=== PATIENT | female | born 1935 | race Caucasian/White ===

== ENCOUNTER 2017-03-12 17:16 | Emergency (ER) | payer MEDICARE, BC ==
--- NOTE | ~2017-03-12 | CT71 ---
[facility] A Service [facility] RADIOLOGY TEXT RESULTS PATIENT: DIANNA COLLIER LOCATION: [facility] : 35 UNIT #: [id number] AGE: [address]: Toyin Hancock MD SEX: F ORDER DR: [id number] [facility]. [place], [place] [address] [id number] E MR#: [id number] #: [id number] NAME: DIANNA COLLIER. : 1935 SEX: F STUDY DATE/TIME: 03/12/2017 17:12 UNIT: [facility] ROOM: STUDY DESCRIPTION: CT Head Wo Contrast Attending Physician: Toyin Hancock M.D. Referring Physician: Cristofer De Anda Jr., M.D. Ordering Physician: Toyin Hancock M.D. Primary Care Physician: Cristofer De Anda Jr., M.D. MEDICAL IMAGING REPORT This report is preliminary unless electronic signature is present EXAM Noncontrast head CT HISTORY 81-year-old female fell at [facility] today, hit head, left frontal soft tissue swelling. COMPARISON Head CT 12/01/[address] exam was performed with one or more of the following radiation dose reduction techniques: Automatic exposure control, adjustment of mA and/or kV according to patient size, and iterative reconstruction. Axial noncontrast imaging of the brain demonstrates generalized cerebral atrophy. Decreased attenuation of the periventricular white matter most compatible with chronic microvascular disease. No large vessel infarcts. No mass or hemorrhage. No intracranial mass lesion seen. Large left frontal scalp hematoma measuring up to 6 cm at its base. No evidence of fracture. Bilateral maxillary, ethmoid and sphenoid sinus and frontal sinus disease most likely represents chronic sinusitis. IMPRESSION 1. No acute intracranial abnormality identified. 2. Generalized atrophy with evidence of chronic microvascular disease. 3. Large left frontal scalp hematoma. 4. Chronic pansinusitis. [facility] A Service [facility] RADIOLOGY TEXT RESULTS PATIENT: DIANNA COLLIER LOCATION: [facility] : 35 UNIT #: [id number] AGE: [address]: Toyin Hancock MD SEX: F ORDER DR: Dictated by... Tram Moeller M.D. THIS IS AN ELECTRONICALLY VERIFIED REPORT Tram Moeller M.D. at 03/13/2017 3:33 PM LYNNE/tyrone TD: 03/13/2017 02:44 JOB #: [id number] MEDICAL IMAGING REPORT Page 1 of 1 COPY
--- NOTE | ~2017-03-12 | CT52 ---
[facility] A Service [facility] RADIOLOGY TEXT RESULTS PATIENT: DIANNA COLLIER LOCATION: [facility] : 35 UNIT #: [id number] AGE: [address]: Toyin Hancock MD SEX: F ORDER DR: [id number] [facility]. [place], [place] [address] [id number] E MR#: [id number] Acc #: [id number] NAME: DIANNA COLLIER. : 1935 SEX: F STUDY DATE/TIME: 03/12/2017 17:19 UNIT: [facility] ROOM: STUDY DESCRIPTION: CT Cervical Spine Wo Cont Attending Physician: Toyin Hancock M.D. Referring Physician: Cristofer De Anda Jr., M.D. Ordering Physician: Toyin Hancock M.D. Primary Care Physician: Cristofer De Anda Jr., M.D. MEDICAL IMAGING REPORT This report is preliminary unless electronic signature is present EXAM CT cervical spine without contrast HISTORY 81-year-old female fell at [facility] today, complains of neck pain, diffuse pain and swelling. COMPARISON CT cervical spine 12/01/[address] exam was performed with one or more of the following radiation dose reduction techniques: Automatic exposure control, adjustment of mA and/or kV according to patient size, and iterative reconstruction. Thin-section axial images performed through the cervical spine without contrast. Multiplanar reconstructed images reviewed at a workstation. Examination demonstrates an exaggerated cervical lordosis. Advanced degenerative disc changes are noted at C5-6 and, to a lesser extent, C6-7. Mild multilevel facet arthropathy. No fracture. No malalignment. Upper thorax appears normal. Extensive carotid atherosclerotic calcifications noted. IMPRESSION 1. No acute cervical spine injury identified. 2. 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 3. Marked exaggeration of the cervical lordosis. This, however, is unchanged from prior studies. Dictated by... [facility] A Service of [facility] RADIOLOGY TEXT RESULTS PATIENT: DIANNA COLLIER [id number] : 35 UNIT #: [id number] AGE: [address]: Toyin Hancock MD SEX: F ORDER DR: Tram Moeller M.D. THIS IS AN ELECTRONICALLY VERIFIED REPORT Tram Moeller M.D. at 03/13/2017 3:33 PM LYNNE/tyrone TD: 03/13/2017 02:52 JOB #: [id number] MEDICAL IMAGING REPORT Page 1 of 1 COPY
[~2017-03-12 17:16] MED LIST: ATIVAN0.5 M1 PO; BUMETANIDE0.5 MG PO; CELEXA20 MG PO; CRANBERRY200 MG PO; FOLIC ACID1 MG PO; NAMENDA10 MG PO; NORVASC2.5 MG PO; RAZADYNE4 M1 PO; RISPERDAL0.5 M1 PO; VITAMIN B122500 MCG PO
== END 2017-03-12 19:50 ==
LOC: CED 17:16
DX: S09.90XA Unspecified injury of head, initial encounter (principal); Z79.899 Other long term (current) drug therapy; W19.XXXA Unspecified fall, initial encounter; Y92.9 Unspecified place or not applicable
CPT/HCPCS: 70450; 72125; 99284